=== PATIENT | female | born 1960 | race Caucasian/White ===

== ENCOUNTER → 2019-06-05 | Outpatient (REF) | payer BC, OTHER | LOC: M LAB LCGH 12:34 | PROVIDERS: ATTEND Family Medicine | DX: Z00.01 Encounter for general adult medical examination with abnormal findings (principal) ==

== ENCOUNTER → 2020-11-02 | Outpatient (CLI) | payer BC ==
[2020-11-02 10:10] LABS: BASO % 0.7 % (0.0-1.0); EOS # 0.1 10^3/uL (0.0-0.5); EOS % 2.5 % (0.0-3.0); HEMATOCRIT 40.7 % (36.0-47.0); HEMOGLOBIN 13.1 g/dl (12.0-15.5); LYMPH # 1.5 10^3/uL (1.5-5.0); LYMPH % 27.5 % (24.0-44.0); MEAN CORPUSCULAR HGB CONC 32.2 g/dl (32.0-36.5); MONO # 0.5 10^3/uL (0.0-0.8); MONO % 8.8 % (2.0-8.0); NEUTROPHILS # 3.4 10^3/uL (1.5-8.5); NEUTROPHILS % 60.1 % (36.0-66.0); PLATELET COUNT, AUTOMATED 244 10^3/uL (150-450); RED BLOOD COUNT 4.68 10^6/uL (4.00-5.40); WHITE BLOOD COUNT 5.6 10^3/uL (4.0-10.0)
[2020-11-02 10:32] LABS: BLOOD UREA NITROGEN 18 MG/DL (7-18); CARBON DIOXIDE LEVEL 30 MEQ/L (21-32); CHLORIDE LEVEL 108 MEQ/L (98-107); GLOMERULAR FILTRATION RATE > 60.0 (>45); GLUCOSE, FASTING 88 MG/DL (70-100); SODIUM LEVEL 143 MEQ/L (136-145)
--- NOTE | 2020-11-03 15:49 | ECGEPIP ---
[facility] Test Date: 2020-11-02 Pat Name: TERESA CANO Department: Room: - Gender: Female Surveyor'S Assistant: : 1960 Requested By: Ambrosio Jorge Order Number: [id number] Reading MD: Garrett Parson Measurements Intervals [place] Rate: 69 P: 56 IA: 150 QRS: 11 QRSD: 146 T: 0 QT: 438 QTc: 469 Interpretive Statements Normal sinus rhythm Right bundle branch block Comparison tracing not on file Electronically Signed on 11-03-2020 15:49:04 EST by Garrett Parson
== END ==
LOC: M LAB 09:21
PROVIDERS: ATTEND Podiatrist
DX: M20.21 Hallux rigidus, right foot (principal); M79.671 Pain in right foot

== ENCOUNTER 2020-11-18 09:18 | Day surgery (SDC) | payer BC ==
[~2020-11-18] VITALS: Ht 160 cm; Wt 92.5 kg
[~2020-11-18 09:18] MED LIST: LR 1,000 ML IV ONE; VANCOMYCIN HCL 1,000 MG, VIAL MATE ADAPTER 1 EACH in NS 250 ML IV ONE; VENTAER INH
[2020-11-18] MEDS ORDERED: VANCOMYCIN 1000MG/20ML VIAL As Ordered ONE (09:59)
[2020-11-18] MEDS ORDERED: dexameTHASONE 4 MG/ML 1ML VIAL (J1100 PER 1MG) As Ordered ONE (10:25)
[2020-11-18] MEDS ORDERED: LIDOCAINE 2% MDV 20ML VIAL As Ordered ONE (10:26)
[2020-11-18] MEDS ORDERED: BACITRACIN PWD 50,000 UNITS VIAL As Ordered ONE (10:26)
[2020-11-18] MEDS ORDERED: BUPIVACAINE HCL 0.5% 30 ML VIAL As Ordered ONE (10:26)
[2020-11-18] MEDS ORDERED: NEOSPORIN GU IRRIG 20 ML VIAL As Ordered ONE (10:26)
[2020-11-18] MEDS ORDERED: propofoL 200 MG/20 ML VIAL As Ordered ONE ×3 (12:34→13:18)
[2020-11-18] MEDS ORDERED: LABETALOL 100MG/20ML VIAL As Ordered ONE (12:34)
[2020-11-18] MEDS ORDERED: MIDAZOLAM INJ 2MG/2ML VIAL (J2250 PER 1MG) As Ordered ONE (12:34)
[2020-11-18] MEDS ORDERED: ACETAMINOPHEN 1000MG 100ML IV BTL (OFIRMEV) (J0131 PER 10MG) As Ordered ONE (12:34)
[2020-11-18] MEDS ORDERED: LIDOCAINE 2% 100MG/5ML SDV (FOR ANES.) As Ordered ONE (12:34)
[2020-11-18] MEDS ORDERED: oxyCODONE 5MG TAB PO PRN (14:05)
[2020-11-18] MEDS ORDERED: LR 1,000 ML IV SCH (14:05)
[2020-11-18] MEDS ORDERED: ONDANSETRON 4MG/2ML VIAL IV PRN (14:05)
--- NOTE | 2020-11-18 14:33 | REP ---
INDICATION: POST OP PLACEMENT COMPARISON: None. TECHNIQUE: Three views right foot. FINDINGS: Surgical defect is seen in the distal 1st metatarsal, fixed by 2 metallic screws. There is moderate narrowing of the 1st metatarsophalangeal joint with subchondral sclerosis and mild spurring. An overlying cast obscures underlying osseous detail. Moderate-sized spur is seen of the inferior calcaneus. IMPRESSION: Postsurgical changes right 1st metatarsal. <Electronically signed by Art Sánchez > 11/18/20 0094
[2020-11-18 15:29] VITALS: BP 168/88
--- NOTE | 2020-11-19 09:18 | RO ---
OPERATIVE NOTE DATE OF OPERATION: 11/18/2020 PREOPERATIVE DIAGNOSIS: Hallux rigidus deformity right foot. POSTOPERATIVE DIAGNOSIS: Hallux rigidus deformity right foot. PROCEDURE PERFORMED: Cheilectomy with Watermann osteotomy internal screw fixation right foot. SURGEON: Ambrosio Jorge DPM THERAPIST PHYS: None. ANESTHESIA: Local, MAC. IRRIGATION: Dilute Bacitracin, Neomycin, Polymyxin B solution. HARDWARE UTILIZED: 3 mm x 24 mm low profile screw and 3 mm x 26 mm low profile screw. HEMOSTASIS: Ankle pneumatic tourniquet at 250 mmHg 39 minutes. DESCRIPTION OF PROCEDURE: On 11/18/2020 this 59-year-old white female was taken from hospital room to operating room and placed on the operating table in supine position. Following the induction of IV sedation and local regional anesthesia the right lower extremity was prepped and draped in usual aseptic manner. Attention was directed to the patient's right foot. There was found to be a hallux limitus deformity of the right foot. At this time the following procedure was performed: Cheilectomy 1st metatarsophalangeal joint right foot. Attention was directed to the patient's right foot. A 5 cm dorsal incision was placed over the 1st metatarsophalangeal joint medial to the extensor tendon. The incision was deepened through subcutaneous tissue and all crossing venous tributaries were identified, scored, clamped, cut and ligated, electrocoagulated as necessary. A linear capsulotomy was then performed in the same plane as the original skin incision. The capsular and periosteal structures were then dissected free dorsally, medially and laterally, thus creating a capsular periosteal type envelope. This brought into view the spurring over the 1st metatarsophalangeal joint and proximal phalanx. Utilizing a power saw an osteotomy was performed through the dorsal 1st metatarsal. The cartilage overlying the 1st metatarsal was intact but thinned but no cystic erosions were noted of the entire cartilage on the head or base of the proximal phalanx. Attention was directed to the proximal phalanx where approximately 10% of the spur and dorsal margin of the proximal phalanx was excised. This allowed increased range of motion of the 1st metatarsophalangeal joint. However, the 1st metatarsal was noted to be in a medially deviated position and elevated. Therefore, the following procedure was performed: Watermann osteotomy with internal screw fixation 3.0 mm x 24 mm and 26 mm x 1 right foot. Attention was directed to the patient's 1st metatarsal where Watermann osteotomy was performed which was oriented with dorsal-based wedge. The wedge measured approximately 4 mm. The wedge of bone was then removed. The bone was transposed in a lateral direction, rotated out of its valgus position into more varus position and plantarflexed several millimeters. This was then fixated with two screws 3.0 x 24 and 3.0 x 26 mm screw that did not penetrate the inferior cartilage on direct visualization and osteotomy was noted to be stable on all three cognate planes. The wound was then flushed with copious amounts of dilute Bacitracin, Neomycin and Polymyxin B solution. Attention was directed towards closure where the capsular structures were coapted and maintained using 2-0 Monocryl in a simple interrupted type fashion. The subcutaneous tissues were coapted and maintained utilizing 4-0 Monocryl in a simple interrupted type fashion. The skin incision was coapted and maintained utilizing 5-0 Monocryl in continuous subcuticular type fashion. Sterile dressing was then applied consisting of Adaptic, 4 x 4s, 4 x 4 splints and well-molded Fiberglass cast was applied consisting of 4 inch Fiberglass. The patient had the tourniquet removed jail through the procedure since there was ooze even with the tourniquet inflated. Therefore, the entire closure was done without hemostasis and this was obtained with electrocoagulation. The patient having apparently tolerated the surgical procedure well was taken from the OR to the recovery room for further monitoring by the anesthesia department. Postoperative instructions were given upon discharge.
--- NOTE | 2020-11-19 17:01 | REP ---
INDICATION: CHEILECTOMY WITH FUSION RIGHT FOOT. COMPARISON: None. TECHNIQUE: AP, lateral, oblique views of the right foot. FINDINGS: Postsurgical changes at the 1st metatarsal bone. IMPRESSION: Postsurgical changes at the 1st metatarsal bone. <Electronically signed by Parth Ambrocio > 11/19/20 0188
== END 2020-11-18 15:32 | disposition home or self-care (01) ==
LOC: M SDC 09:18
PROVIDERS: ATTEND Podiatrist
DX: M20.21 Hallux rigidus, right foot (principal); M79.671 Pain in right foot; Z88.1 Allergy status to other antibiotic agents; Z88.2 Allergy status to sulfonamides
CPT/HCPCS: 28289; 28296; 73630; 76000; 88300; 97116; C1713; J0131; J1100; J2250; J3370